=== PATIENT | female | born 1990 | race Caucasian/White ===

== ENCOUNTER 2022-03-02 22:19 | Inpatient (IN) | payer BC, OTHER ==
[~2022-03-02] VITALS: Ht 165.1 cm; Wt 105.7 kg
[2022-03-02 22:30] VITALS: BP 127/76
[2022-03-02 22:39] LABS: CLARITY,URINE SL CLOUDY; COLOR,URINE DARK YELLOW; GLUCOSE, URINE (UA) TRACE (NEGATIVE); KETONES,URINE 2+ (NEGATIVE); LEUKOCYTE ESTERASE ,URINE 1+ (NEGATIVE); NITRITE,URINE NEGATIVE (NEGATIVE); PH,URINE 5.5 (5-9); PROTEIN,URINE 1+ (NEGATIVE)
[2022-03-02 22:53] LABS: BACTERIA,URINE MODERATE /HPF; BILIRUBIN,URINE 1+ (NEGATIVE); RBC,URINE 0-2 /HPF; SQUAMOUS EPITHELIAL CELL,UR 0-2 /HPF
[2022-03-03] VITALS (59 sets, daily range): BP systolic 91–129; BP diastolic 51–73
[2022-03-03] MEDS ORDERED: MINERAL OIL 30 ML UDC TOP PRN (00:15)
[2022-03-03] MEDS ORDERED: LIDOCAINE/EPI 2% 1:200,00 (XYLOCAINE) 10 ML VIAL INJ PRN (00:15)
[2022-03-03 00:16] LABS: BASOPHILS % (AUTO) 0 % (0-10); EOSINOPHILS # (AUTO) 0.1 10^3/uL (0.0-0.3); EOSINOPHILS % (AUTO) 1 % (0-10); HEMATOCRIT 34 % (35-52); HEMOGLOBIN 11.4 g/dL (11.5-16.0); LYMPHOCYTES # (AUTO) 1.6 10^3/uL (1.0-4.0); LYMPHOCYTES % (AUTO) 18 % (12-44); MEAN CORPUSCULAR HEMOGLOBIN 26 pg (25-34); MEAN CORPUSCULAR HGB CONC 33 g/dL (32-36); MEAN CORPUSCULAR VOLUME 79 fL (80-99); MEAN PLATELET VOLUME 10.9 fL (9.0-12.2); MONOCYTES # (AUTO) 0.6 10^3/uL (0.0-1.0); MONOCYTES % (AUTO) 6 % (0-12); NEUTROPHILS % (AUTO) 75 % (42-75); PLATELET COUNT 202 10^3/uL (130-400); WHITE BLOOD COUNT 9.4 10^3/uL (4.3-11.0)
[2022-03-03] MEDS: D5 LR IV SOLUTION 1,000 ML IV SCH ×2 (02:02→09:15)
[2022-03-03] MEDS ORDERED: fentaNYL 2 mcg/ml BUPIVA 0.125 100 ML ONE (02:10)
[2022-03-03] MEDS ORDERED: LACTATED RINGERS 1,000 ML IV ONE ×3 (02:30→03:15)
[2022-03-03] MEDS ORDERED: fentaNYL INJ 100 MCG/2 ML AMP ONE (02:39)
[2022-03-03] MEDS ORDERED: BUPIVACAINE 0.25% 30 ML (SENSORCAINE) VIAL ONE (02:39)
[2022-03-03] MEDS ORDERED: ONDANSETRON 4 MG/2 ML (SDV) Z0FRAN IV PRN (03:15)
[2022-03-03] MEDS ORDERED: NALOXONE 0.4 MG/ML 1 ML (NARCAN) VIAL IV PRN (03:15)
[2022-03-03] MEDS ORDERED: fentaNYL INJ 100 MCG/2 ML AMP INJ ONE (03:15)
[2022-03-03] MEDS: fentaNYL 2 mcg/ml BUPIVA 0.125 100 ML EPI SCH ×2 (03:38→11:03)
[2022-03-03] MEDS ORDERED: CATHETER FLUSH 10 ML SYR IV SCH ×2 (06:00→14:00)
--- NOTE | 2022-03-03 08:25 | History & Physical-OB ---
OB - Chief Complaint & HPI Date/Time Date of Admission: Date of Admission: Mar 03, 2022 at 00:03 Date seen by a Provider: Mar 03, 2022 Time Seen by a Provider: 08:00 Chief Complaint/History OB-Reason for Admission/Chief: Onset of Labor Hx : 2 Hx Para: 1 Expected Date of Delivery: Mar 10, 2022 Gestational Age in Weeks: 39 Gestational Age in Days: 0 History of Labs A neg, Ab neg, Rub Imm HIV/RPR/HepB/C NR Normal 1 hr GTT GBS neg Allergies and Home Medications Allergies Coded Allergies: No Known Drug Allergies (Unverified , 03/02/22) Patient Home Medication List Home Medication List Reviewed: Yes OB - History Hx of Present Care: Yes Ultrasounds: Normal mid trimester US Obstetrical Complications: None Medical Complications: None Obstetrical History Hx : 2 Hx Para: 1 Hx # Term Pregnancies: 1 Number of Living Children: 1 Patient Past Medical History N/A Social History/Family History Alcohol Use: Denies Use Smoking Cessation: Never smoker Immunizations Influenza Vaccine Up-to-Date: No; Not Current Tetanus Booster (TDap): Less than 5yrs Rubella: immune RPR/VDRL: Negative GBS Status: Negative HBsAG: Negative OB - Admission Exam Physical Exam Vitals: Vital Signs 03/02/22 03/03/22 03/03/22 22:30 06:15 07:00 Temp 36.8 Pulse 61 Resp 18 B/P (MAP) 109/59 (76) Pulse Ox 97 O2 Delivery Room Air HEENT: NCAT Heart: Rhythm Normal Lungs: Clear Abdomen: Gravid Cervical Dilatation: 7cm Effacement: 100% Station: 0 Membranes: Ruptured Amniotic Fluid: Clear Accelerations: Accelerations Present Decelerations: No Decelerations Contractions on Admission: < 5 Minutes Apart Intensity: Moderate Labs Laboratory Tests Test 03/02/22 22:34 03/02/22 23:59 Range/Units Urine Color DARK YELLOW Urine Clarity SL CLOUDY Urine pH 5.5 5-9 Urine Specific [place] >=1.030 1.016-1.022 Urine Protein 1+ H NEGATIVE Urine Glucose (UA) TRACE H NEGATIVE Urine Ketones 2+ H NEGATIVE Urine Nitrite NEGATIVE NEGATIVE Urine Bilirubin 1+ H NEGATIVE Urine Urobilinogen 1.0 < = 1.0 MG/DL Urine Leukocyte Esterase 1+ H NEGATIVE Urine RBC (Auto) NEGATIVE NEGATIVE Urine RBC 0-2 /HPF Urine WBC 5-10 H /HPF Urine Squamous Epithelial Cells 0-2 /HPF Urine Renal Epithelial Cells NONE /HPF Urine Crystals NONE /LPF Urine Bacteria MODERATE H /HPF Urine Casts NONE /LPF Urine Mucus SMALL H /LPF Urine Culture Indicated YES White Blood Count 9.4 4.3-11.0 10^3/uL Red Blood Count 4.35 3.80-5.11 10^6/uL Hemoglobin 11.4 L 11.5-16.0 g/dL Hematocrit 34 L 35-52 % Mean Corpuscular Volume 79 L 80-99 fL Mean Corpuscular Hemoglobin 26 25-34 pg Mean Corpuscular Hemoglobin Concent 33 32-36 g/dL Red Cell Distribution Width 13.9 10.0-14.5 % Platelet Count 202 130-400 10^3/uL Mean Platelet Volume 10.9 9.0-12.2 fL Immature Granulocyte % (Auto) 1 % Neutrophils (%) (Auto) 75 42-75 % Lymphocytes (%) (Auto) 18 12-44 % Monocytes (%) (Auto) 6 0-12 % Eosinophils (%) (Auto) 1 0-10 % Basophils (%) (Auto) 0 0-10 % Neutrophils # (Auto) 7.0 1.8-7.8 10^3/uL Lymphocytes # (Auto) 1.6 1.0-4.0 10^3/uL Monocytes # (Auto) 0.6 0.0-1.0 10^3/uL Eosinophils # (Auto) 0.1 0.0-0.3 10^3/uL Basophils # (Auto) 0.0 0.0-0.1 10^3/uL Immature Granulocyte # (Auto) 0.1 0.0-0.1 10^3/uL OB - Assessment/Plan/Diagnosis Assessment Assessment: active labor Admission Dx Third Trimester 39 week gestation Admission Status: Inpatient Order (span 2 midnights) Reason for Inpatient Admission: Labor and post care Plan Plan: Expectant Management Other Plan 31 yo @ 39.0 wga here in active labor Plan - GBS neg - AROM this AM 0750 clear - Expectant management Copy Copies To 1: CONNIE COPELAND MD, HOLLY R MD Mar 03, 2022 08:25
[2022-03-03] MEDS ORDERED: OXYTOCIN PRE-MIX DRIP 500 ML IV ONE (09:18)
[2022-03-03] MEDS ORDERED: OXYTOCIN PRE-MIX DRIP 500 ML IV SCH ×2 (09:30→13:30)
--- NOTE | 2022-03-03 13:21 | OB Labor & Delivery Record ---
Vag Delivery Note Vag Delivery Note Date of Delivery: 03/03/22 Preoperative Diagnosis: Kitty Ware is a (31 /Para 2 / 1,Gestational Age (wks)39.0 here in active labor Postoperative Diagnosis: Same Surgeon: CONNIE COPELAND MD Cna: None Anesthesia: Epidural Delivery Type: @ 1259 Findings: Viable Male , apgars 8/9, weight 9#0, 4082 grams Lacerations: none Intact placenta with 3 vessel cord. No nuchal cord, body cord or shoulder dystocia Estimated Blood Loss: 100 ml Complications: None Condition: Stable Description of Procedure: The patient is a 31 year old female who presented in active labor. She was admitted and informed consent was obtained. Her labor course was unremarkable. S he progressed to complete dilatation and began to push. She was then set up for delivery. The infant's head was delivered atraumatically in the TRICIA position. The shoulders and remainder of the infant's body were then delivered without difficulty. Upon delivery, the head was held below the level of the perineum and the mouth and nares were bulb suctioned. The cord was doubly clamped and cut by FOB after 4 min delay and the infant was attended to by the pediatric staff on maternal abdomen. An intact placenta with 3-vessel cord delivered via Ministerio and there was found to be minimal bleeding.~ Vigorous fundal massage was performed and the fundus was found to be firm. IV oxytocin was given. Examination of the vagina and perineum revealed no lacerations that required repair. Following the repair, sponge, instrument and needle counts were correct. Mom and baby were both in stable condition in the labor suite. Vitals - Labs Vital Signs - I&O Vital Signs Date Time Temp Pulse Resp B/P (MAP) Pulse Ox O2 Delivery O2 Flow Rate FiO2 03/03/22 11:00 54 18 105/67 (80) 100 Non Rebreather 10.00 03/03/22 10:45 54 18 91/52 (65) 100 Non Rebreather 10.00 03/03/22 10:30 53 18 100/58 (72) 99 Non Rebreather 10.00 03/03/22 10:15 55 18 100/58 (72) 97 Non Rebreather 10.00 03/03/22 10:00 36.2 57 18 101/66 (78) 99 Non Rebreather 10.00 03/03/22 09:45 64 18 110/69 (83) 99 Room Air 03/03/22 09:30 63 18 109/62 (78) 96 Room Air 03/03/22 09:15 56 18 106/61 (76) 95 Room Air 03/03/22 09:00 55 18 108/62 (77) 96 Room Air 03/03/22 08:45 64 18 117/68 (84) 99 Room Air 03/03/22 08:30 55 18 115/67 (83) 99 Room Air 03/03/22 08:15 65 18 118/72 (87) 99 Room Air 03/03/22 08:00 36.1 61 18 114/70 (85) 98 Room Air 03/03/22 07:45 60 18 109/62 (78) Room Air 03/03/22 07:30 79 16 108/61 (77) Room Air 03/03/22 07:15 36.6 58 16 112/61 (78) Room Air 03/03/22 07:00 61 18 109/59 (76) Room Air 03/03/22 06:45 62 18 110/61 (77) Room Air 03/03/22 06:30 66 18 108/57 (74) Room Air 03/03/22 06:15 65 18 107/57 (74) 97 Room Air 03/03/22 06:00 71 18 112/59 (76) 97 Room Air 03/03/22 05:45 77 18 108/56 (73) 97 Room Air 03/03/22 05:30 79 18 109/58 (75) 97 Room Air 03/03/22 05:15 67 18 111/59 (76) 97 Room Air 03/03/22 05:00 82 18 109/57 (74) 97 Room Air 03/03/22 04:42 68 18 116/62 (80) 97 Room Air 03/03/22 04:30 74 18 115/57 (76) 97 Room Air 03/03/22 04:15 86 18 112/58 (76) 96 Room Air 03/03/22 04:00 70 18 114/59 (77) 96 Room Air 03/03/22 03:45 71 18 114/61 (78) 97 Room Air 03/03/22 03:17 60 18 116/61 (79) 97 Room Air 03/03/22 03:12 68 18 116/58 (77) 97 Room Air 03/03/22 03:07 73 18 116/55 (75) 100 Room Air 03/03/22 03:02 62 18 115/64 (81) 100 Room Air 03/03/22 02:57 76 18 120/65 (83) 100 Room Air 03/03/22 02:52 77 18 125/71 (89) 100 Room Air 03/03/22 02:47 64 18 112/60 (77) 100 Room Air 03/03/22 02:15 71 18 107/61 (76) Room Air 03/03/22 01:00 63 18 108/68 (81) Room Air 03/02/22 22:30 36.8 93 18 97 Room Air I & O 03/03/22 07:00 Intake Total 1000 ml Balance 1000 ml Labs Laboratory Tests 03/02/22 22:34: Urine Color DARK YELLOW, Urine Clarity SL CLOUDY, Urine pH 5.5, Urine Specific [place] >=1.030, Urine Protein 1+H, Urine Glucose (UA) TRACEH, Urine Ketones 2+H , Urine Nitrite NEGATIVE, Urine Bilirubin 1+H, Urine Urobilinogen 1.0, Urine Leukocyte Esterase 1+H, Urine RBC (Auto) NEGATIVE, Urine RBC 0-2, Urine WBC 5- 10H, Urine Squamous Epithelial Cells 0-2, Urine Renal Epithelial Cells NONE, Urine Crystals NONE, Urine Bacteria MODERATEH, Urine Casts NONE, Urine Mucus SMALLH, Urine Culture Indicated YES 03/02/22 23:59: White Blood Count 9.4, Red Blood Count 4.35, Hemoglobin 11.4L, Hematocrit 34L, Mean Corpuscular Volume 79L, Mean Corpuscular Hemoglobin 26, Mean Corpuscular Hemoglobin Concent 33, Red Cell Distribution Width 13.9, Platelet Count 202, Mean Platelet Volume 10.9, Immature Granulocyte % (Auto) 1, Neutrophils (%) (Auto) 75, Lymphocytes (%) (Auto) 18, Monocytes (%) (Auto) 6, Eosinophils (%) (Auto) 1, Basophils (%) (Auto) 0, Neutrophils # (Auto) 7.0, Lymphocytes # (Auto) 1.6, Monocytes # (Auto) 0.6, Eosinophils # (Auto) 0.1, Basophils # (Auto) 0.0, Immature Granulocyte # (Auto) 0.1 CONNIE COPELAND MD Mar 03, 2022 13:21
[2022-03-03] MEDS ORDERED: BENZOCAINE/MENTHOL (DERMOPLAST) 56 ML CAN TP PRN (13:30)
[2022-03-03] MEDS ORDERED: WITCH HAZEL(TUCKS) 40 EA JAR TOP PRN (13:30)
[2022-03-03] MEDS: ACETAMINOPHEN 500 MG TAB (TYLENOL) PO SCH ×2 (17:00→22:55)
[2022-03-03] MEDS: IBUPROFEN 600 MG (MOTRIN) TAB PO SCH ×2 (17:00→22:55)
[2022-03-03] MEDS: DOCUSATE SODIUM 100 MG (COLACE) CAP PO SCH (20:19)
[2022-03-04 04:57] VITALS: BP 111/64
[2022-03-04] MEDS: IBUPROFEN 600 MG (MOTRIN) TAB PO SCH ×4 (05:01→17:52)
[2022-03-04] MEDS: ACETAMINOPHEN 500 MG TAB (TYLENOL) PO SCH ×4 (05:02→17:53)
[2022-03-04 05:44] LABS: BASOPHILS % (AUTO) 0 % (0-10); EOSINOPHILS # (AUTO) 0.1 10^3/uL (0.0-0.3); EOSINOPHILS % (AUTO) 2 % (0-10); HEMATOCRIT 29 % (35-52); HEMOGLOBIN 9.6 g/dL (11.5-16.0); LYMPHOCYTES # (AUTO) 1.6 10^3/uL (1.0-4.0); LYMPHOCYTES % (AUTO) 28 % (12-44); MEAN CORPUSCULAR HEMOGLOBIN 26 pg (25-34); MEAN CORPUSCULAR HGB CONC 33 g/dL (32-36); MEAN CORPUSCULAR VOLUME 80 fL (80-99); MEAN PLATELET VOLUME 10.6 fL (9.0-12.2); MONOCYTES # (AUTO) 0.4 10^3/uL (0.0-1.0); MONOCYTES % (AUTO) 8 % (0-12); NEUTROPHILS # (AUTO) 3.4 10^3/uL (1.8-7.8); NEUTROPHILS % (AUTO) 61 % (42-75); PLATELET COUNT 173 10^3/uL (130-400); WHITE BLOOD COUNT 5.6 10^3/uL (4.3-11.0)
[2022-03-04] MEDS: PRENATAL VITAMIN 1 EA TAB PO SCH (07:39)
[2022-03-04] MEDS: DOCUSATE SODIUM 100 MG (COLACE) CAP PO SCH ×2 (07:41→20:16)
[2022-03-04 07:51] VITALS: BP 106/68
--- NOTE | 2022-03-04 10:58 | Progress Note ---
Subjective Subjective/Events-last exam Doing well. Bleeding slowed. Minimal pain. Breast feeding going ok. +UOP/BM Objective Exam Last Set of Vital Signs Vital Signs Date Time Temp Pulse Resp B/P (MAP) Pulse Ox O2 Delivery O2 Flow Rate FiO2 03/04/22 07:51 36.7 59 18 106/68 (81) 99 Room Air 03/03/22 11:00 10.00 Capillary Refill : Less Than 3 Seconds I&O Intake and Output 03/03/22 23:59 Intake Total 3615 ml Balance 3615 ml Intake IV Total 3615 ml Daily Weight Change No General: Alert, Oriented X3, Cooperative Psych/Mental Status: Mental Status NL Results/Procedures Lab Laboratory Tests 03/04/22 05:35: White Blood Count 5.6, Red Blood Count 3.69L, Hemoglobin 9.6L, Hematocrit 29L, Mean Corpuscular Volume 80, Mean Corpuscular Hemoglobin 26, Mean Corpuscular Hemoglobin Concent 33, Red Cell Distribution Width 13.9, Platelet Count 173, Mean Platelet Volume 10.6, Immature Granulocyte % (Auto) 1, Neutrophils (%) (Auto) 61, Lymphocytes (%) (Auto) 28, Monocytes (%) (Auto) 8, Eosinophils (%) (Auto) 2, Basophils (%) (Auto) 0, Neutrophils # (Auto) 3.4, Lymphocytes # (Auto) 1.6, Monocytes # (Auto) 0.4, Eosinophils # (Auto) 0.1, Basophils # (Auto) 0.0, Immature Granulocyte # (Auto) 0.0 Microbiology 03/02/22 Urine Culture - Preliminary, Resulted Culture In Progress Assessment/Plan Assessment/Plan Assessment & Plan PPD #1 s/p at 39 wk. Blood type A neg, baby O neg Hb 9.6 - initiate iron. DEEDEE HACKETT DO Mar 04, 2022 10:58
[2022-03-04] MEDS: FERROUS SULF 325 MG (IRON) TAB PO SCH (12:05)
[2022-03-04 12:07] VITALS: BP 109/64
--- NOTE | 2022-03-04 13:58 | Anesthesia-Regional Post-Op ---
Regional Patient Condition Mental Status: Alert, Oriented x3 Circulation: Same as Pre-Op Headache: Absent Sensation: Full Recovery Motor Block: Absent Post Op Complications Complications None Follow Up Care/Instructions Patient Instructions None needed. Anesthesia/Patient Condition Patient is doing well, no complaints, stable vital signs, no apparent adverse anesthesia problems. No complications reported per nursing. RICHARD ARTIS CRNA Mar 04, 2022 13:58
[2022-03-04 18:04] VITALS: BP 110/67
[2022-03-04] MEDS ORDERED: CALCIUM CARBONATE 500 MG (TUMS) TAB.CHEW PO ONE ×2 (20:30→21:30)
[2022-03-04] MEDS ORDERED: CALCIUM CARBONATE 500 MG (TUMS) TAB.CHEW ONE ×2 (21:26)
[2022-03-05 00:07] VITALS: BP 122/65
[2022-03-05] MEDS: ACETAMINOPHEN 500 MG TAB (TYLENOL) PO SCH ×2 (00:07→06:02)
[2022-03-05] MEDS: IBUPROFEN 600 MG (MOTRIN) TAB PO SCH ×2 (00:07→06:02)
[2022-03-05] MEDS: FERROUS SULF 325 MG (IRON) TAB PO SCH (06:01)
[2022-03-05] MEDS: PRENATAL VITAMIN 1 EA TAB PO SCH (06:02)
[2022-03-05 06:04] VITALS: BP 119/68
[2022-03-05 09:25] VITALS: BP 115/64
[2022-03-05] MEDS: DOCUSATE SODIUM 100 MG (COLACE) CAP PO SCH (09:30)
--- NOTE | 2022-03-05 09:52 | Short Stay Summary ---
Discharge Summary Hospital Course Final Diagnosis: s/p Hospital Course Date of Admission: Mar 03, 2022 at 00:03 Admission Diagnosis : 1. 39wk GA spontaneous labor Family Physician/Provider: Inder Date of Discharge: 03/05/22 Discharge Diagnosis: s/p Hospital Course: Routine course Labs and Pending Lab Test: Microbiology 03/02/22 Urine Culture - Final, Complete >=3 Gram Positive Isolates Assessment/Pt Instructions Follow up with Dr. Loving in [place] in 6wk Discharge Instructions Discharge Diet: No Restrictions Discharge Physical Examination General Appearance: Alert, Oriented X3, Cooperative Psych/Mental Status: Mental Status NL Allergies: Coded Allergies: No Known Drug Allergies (Unverified , 03/02/22) Discharge Summary Date of Admission Mar 03, 2022 at 00:03 Date of Discharge DEEDEE HACKETT DO Mar 05, 2022 09:52
[2022-03-05 11:15] VITALS: BP 115/64
== END 2022-03-05 11:15 | disposition home or self-care (01) | DRG 807 ==
LOC: WSo 22:19 → LDRP 22:19 → WSo 03-03 00:03 → LDRP 03-03 16:43
PROVIDERS: ADMIT Family Medicine; ATTEND Family Medicine
PROC: 10E0XZZ Delivery of Products of Conception, External Approach (ICD-10-PCS; principal; 2022-03-03)
DX: O80 Encounter for full-term uncomplicated delivery (principal); Z37.0 Single live birth; Z3A.39 39 weeks gestation of pregnancy
CPT/HCPCS: 36415; 81000; 85025; 86850; 86900; 86901; 87088

== ENCOUNTER 2022-05-09 21:51 | Emergency (ER) | payer BC ==
[~2022-05-09] VITALS: Ht 165.1 cm; Wt 98.8 kg
[2022-05-09 22:13] LABS: BILIRUBIN,URINE NEGATIVE (NEGATIVE); CLARITY,URINE CLEAR; COLOR,URINE YELLOW; GLUCOSE, URINE (UA) NEGATIVE (NEGATIVE); KETONES,URINE NEGATIVE (NEGATIVE); LEUKOCYTE ESTERASE ,URINE NEGATIVE (NEGATIVE); NITRITE,URINE NEGATIVE (NEGATIVE); PH,URINE 5.5 (5-9); PROTEIN,URINE TRACE (NEGATIVE)
[2022-05-09] MEDS ORDERED: ONDANSETRON 4 MG/2 ML (SDV) Z0FRAN IVP ONE (22:15)
[2022-05-09] MEDS ORDERED: fentaNYL INJ 100 MCG/2 ML AMP IVP ONE (22:15)
[2022-05-09] MEDS ORDERED: KETOROLAC 30 MG/ML VIAL IVP ONE (22:15)
[2022-05-09 22:20] LABS: BASOPHILS # (AUTO) 0.1 10^3/uL (0.0-0.1); BASOPHILS % (AUTO) 1 % (0-10); EOSINOPHILS # (AUTO) 0.2 10^3/uL (0.0-0.3); EOSINOPHILS % (AUTO) 3 % (0-10); HEMATOCRIT 37 % (35-52); HEMOGLOBIN 12.1 g/dL (11.5-16.0); LYMPHOCYTES # (AUTO) 2.7 10^3/uL (1.0-4.0); LYMPHOCYTES % (AUTO) 37 % (12-44); MEAN CORPUSCULAR HEMOGLOBIN 25 pg (25-34); MEAN CORPUSCULAR HGB CONC 33 g/dL (32-36); MEAN CORPUSCULAR VOLUME 78 fL (80-99); MEAN PLATELET VOLUME 9.7 fL (9.0-12.2); MONOCYTES # (AUTO) 0.6 10^3/uL (0.0-1.0); MONOCYTES % (AUTO) 8 % (0-12); NEUTROPHILS # (AUTO) 3.7 10^3/uL (1.8-7.8); NEUTROPHILS % (AUTO) 50 % (42-75); PLATELET COUNT 259 10^3/uL (130-400); WHITE BLOOD COUNT 7.3 10^3/uL (4.3-11.0)
[2022-05-09 22:39] LABS: ALBUMIN 4.1 GM/DL (3.2-4.5); BILIRUBIN,TOTAL 0.3 MG/DL (0.1-1.0); CALCIUM 9.2 MG/DL (8.5-10.1); CREATININE SERUM 1.04 MG/DL (0.60-1.30); POTASSIUM 3.5 MMOL/L (3.6-5.0); TOTAL PROTEIN 6.8 GM/DL (6.4-8.2)
--- NOTE | 2022-05-09 22:59 | ED Abdominal Pain ---
General Chief Complaint: Abdominal/GI Problems Stated Complaint: PAIN IN RT ABD/BACK Nursing Triage Note: Patient presents to ER via POV reporting RUQ pain since 1530 with pain under right breast radiating into back. Pt has not had ultrasound studies done. Pt is post 9 weeks with intermittant epigastric/RUQ pain. Pt had emesis x 1 [employer]END[employer]. Source of Information: Patient Exam Limitations: No Limitations History of Present Illness Date Seen by Provider: May 09, 2022 Time Seen by Provider: 21:30 Initial Comments Patient is a 32-year-old female who presents with right upper quadrant radiating to her shoulder blade. Symptoms can approximately 5 hours prior to ED arrival. Patient has had intermittent right upper quadrant pain for the past several weeks since the of her child. She reports nausea with vomiting x1. No fevers chills, sweats. No urinary frequency urgency dysuria flank pain. Patient took ibuprofen prior to ED arrival with limited relief. Timing/Duration: 4-6 Hours Severity/Quality: Severe Location: RUQ Radiation: Scapula Activities at Onset: Other Modifying Factors: Improves With Other Associated Symptoms: Other Allergies and Home Medications Allergies Coded Allergies: No Known Drug Allergies (Unverified , 03/02/22) Patient Home Medication List Home Medication List Reviewed: Yes No Active Prescriptions or Reported Meds Review of Systems Review of Systems Constitutional: see HPI EENTM: See HPI Respiratory: See HPI Cardiovascular: See HPI Gastrointestinal: See HPI Genitourinary: See HPI Musculoskeletal: see HPI Skin: see HPI Psychiatric/Neurological: See HPI Endocrine: See HPI Hematologic/Lymphatic: See HPI All Other Systems Reviewed Negative Unless Noted: No Past Ffzvijd-Kjuycp-Zbpjih Hx Patient Social History Tobacco Use?: No Smoking Status: Never a Smoker Smokeless Tobacco Frequency: Never a User Use of E-Cig and/or Vaping Eduardo: Never a User Substance use?: No Alcohol Use?: No Immunizations Up To Date Tetanus Booster (TDap): Less than 5yrs Influenza Vaccine Up-to-Date: No; Not Current First/Initial COVID19 Vaccinat: unvaccinated Past Medical History Surgery/Hospitalization HX: Denies Last Menstrual Period: May 02, 2022 Physical Exam Vital Signs Vital Signs - First Documented 05/09/22 21:58 Temp 36.5 Pulse 65 Resp 16 B/P (MAP) 122/65 (84) Pulse Ox 97 O2 Delivery Room Air Capillary Refill : Less Than 3 Seconds Height/Weight/BMI Height: '" Weight: lbs. oz. kg; 36.00 BMI Method: General Appearance: obese, other (Moderate discomfort secondary to pain) HEENT: PERRL/EOMI, normal ENT inspection, pharynx normal Neck: non-tender, full range of motion Respiratory: lungs clear Cardiovascular: regular rate, rhythm Gastrointestinal: soft, tenderness (Right upper quadrant) Extremities: normal range of motion, non-tender Back: normal inspection Neurologic/Psychiatric: alert, oriented x 3 Skin: normal color Focused Exam Sepsis Stage: Ruled Out Progress/Results/Core Measures Results/Orders Lab Results Laboratory Tests Test 05/09/22 22:05 05/09/22 22:15 Range/Units Urine Color YELLOW Urine Clarity CLEAR Urine pH 5.5 5-9 Urine Specific [place] >=1.030 1.016-1.022 Urine Protein TRACE H NEGATIVE Urine Glucose (UA) NEGATIVE NEGATIVE Urine Ketones NEGATIVE NEGATIVE Urine Nitrite NEGATIVE NEGATIVE Urine Bilirubin NEGATIVE NEGATIVE Urine Urobilinogen 0.2 < = 1.0 MG/DL Urine Leukocyte Esterase NEGATIVE NEGATIVE Urine RBC (Auto) 3+ H NEGATIVE White Blood Count 7.3 4.3-11.0 10^3/uL Red Blood Count 4.76 3.80-5.11 10^6/uL Hemoglobin 12.1 11.5-16.0 g/dL Hematocrit 37 35-52 % Mean Corpuscular Volume 78 L 80-99 fL Mean Corpuscular Hemoglobin 25 25-34 pg Mean Corpuscular Hemoglobin Concent 33 32-36 g/dL Red Cell Distribution Width 13.9 10.0-14.5 % Platelet Count 259 130-400 10^3/uL Mean Platelet Volume 9.7 9.0-12.2 fL Immature Granulocyte % (Auto) 0 % Neutrophils (%) (Auto) 50 42-75 % Lymphocytes (%) (Auto) 37 12-44 % Monocytes (%) (Auto) 8 0-12 % Eosinophils (%) (Auto) 3 0-10 % Basophils (%) (Auto) 1 0-10 % Neutrophils # (Auto) 3.7 1.8-7.8 10^3/uL Lymphocytes # (Auto) 2.7 1.0-4.0 10^3/uL Monocytes # (Auto) 0.6 0.0-1.0 10^3/uL Eosinophils # (Auto) 0.2 0.0-0.3 10^3/uL Basophils # (Auto) 0.1 0.0-0.1 10^3/uL Immature Granulocyte # (Auto) 0.0 0.0-0.1 10^3/uL Sodium Level 138 135-145 MMOL/L Potassium Level 3.5 L 3.6-5.0 MMOL/L Chloride Level 102 98-107 MMOL/L Carbon Dioxide Level 26 21-32 MMOL/L Anion Gap 10 5-14 MMOL/L Blood Urea Nitrogen 13 7-18 MG/DL Creatinine 1.04 0.60-1.30 MG/DL Estimat Glomerular Filtration Rate 73 BUN/Creatinine Ratio 13 Glucose Level 91 70-105 MG/DL Calcium Level 9.2 8.5-10.1 MG/DL Corrected Calcium 9.1 8.5-10.1 MG/DL Total Bilirubin 0.3 0.1-1.0 MG/DL Aspartate Amino Transf (AST/SGOT) 34 5-34 U/L Alanine Aminotransferase (ALT/SGPT) 29 0-55 U/L Alkaline Phosphatase 115 40-136 U/L Total Protein 6.8 6.4-8.2 GM/DL Albumin 4.1 3.2-4.5 GM/DL Lipase 45 8-78 U/L My Orders Orders - ARTHUR HAMPTON DO Cbc With Automated Diff (05/09/22 22:08) Comprehensive Metabolic Panel (05/09/22 22:08) Lipase (05/09/22 22:08) Urinalysis Dipstick Only (05/09/22 22:08) Urine Bedside - Endo (05/09/22 22:08) Fentanyl Inj (Sublimaze Injection) (05/09/22 22:15) Ondansetron Injection (Zofran Injectio (05/09/22 22:15) Ketorolac Injection (Toradol Injection) (05/09/22 22:15) Medications Given in ED Current Medications Medications Dose Ordered Sig/Elana Route Start Time Stop Time Status Last Admin Dose Admin Fentanyl Citrate 50 mcg ONCE ONCE IVP 05/09/22 22:15 05/09/22 22:16 DC 05/09/22 22:21 50 MCG Ketorolac Tromethamine 30 mg ONCE ONCE IVP 05/09/22 22:15 05/09/22 22:16 DC 05/09/22 22:22 30 MG Ondansetron HCl 4 mg ONCE ONCE IVP 05/09/22 22:15 05/09/22 22:16 DC 05/09/22 22:22 4 MG Vital Signs/I&O 05/09/22 21:58 Temp 36.5 Pulse 65 Resp 16 B/P (MAP) 122/65 (84) Pulse Ox 97 O2 Delivery Room Air Blood Pressure Mean: 84 Departure Communication (Admissions) Right upper quadrant pain/tenderness classic for cholelithiasis. Lab work reviewed and reassuring. Symptoms significant improved with treatment. Recommendations are as watchful waiting supportive care with general surgical follow-up. Return precautions reviewed. Patient verbalizes understanding and agreement with discharge instructions prior to departure. Impression Primary Impression: RUQ abdominal pain Additional Impression: Cholelithiasis Disposition: HOME, SELF-CARE Condition: Stable Departure-Patient Inst. Decision time for Depature: 23:02 Referrals: SOULEYMANE MILNER DO Patient Instructions: Gallstones ED Add. Discharge Instructions: You were evaluated in the emergency department for upper abdominal pain. Your exam is consistent with abdominal pain related to gallstones. Please avoid fatty foods starchy foods and take Tylenol for pain. Take tramadol and Zofran as needed for additional relief. Contact Dr. Milner on-call for surgery and schedule follow-up appointment for gallbladder referral. In the meantime if you develop new or concerning symptoms, return to the emergency department. All discharge instructions reviewed with patient and/or family. Voiced understanding. Scripts Ondansetron (Ondansetron Odt) 4 Mg Tab.rapdis 4 MG SL Q4H PRN for NAUSEA/VOMITING, #10 TAB Prov: ARTHUR HAMPTON DO 05/09/22 Tramadol HCl (Tramadol HCl) 50 Mg Tablet 50 MG PO Q6H PRN for PAIN for 3 Days, #12 TAB 0 Refills Prov: ARTHUR HAMPTON DO 05/09/22 ARTHUR HAMPTON DO May 09, 2022 22:59
[2022-05-09] MEDS ORDERED: ONDA4TAB11 SL (23:03)
[2022-05-09] MEDS ORDERED: TRM50T PO (23:03)
[2022-05-09 23:12] VITALS: BP 118/61
== END 2022-05-09 23:12 | disposition home or self-care (01) ==
LOC: EDUNIT# 21:51 → ER FS 21:53
DX: K80.20 Calculus of gallbladder without cholecystitis without obstruction (principal); E66.9 Obesity, unspecified; Z68.36 Body mass index [BMI] 36.0-36.9, adult; Z28.310 Unvaccinated for COVID-19
CPT/HCPCS: 36415; 80053; 81002; 83690; 84703; 85025; 99282